=== PATIENT | female | born 1980 | race African-American/Black ===

== ENCOUNTER 2017-01-23 06:50 | Emergency (ER) | payer OTHER ==
[~2017-01-23] VITALS: Ht 167.6 cm; Wt 90.7 kg
[~2017-01-23 06:50] MED LIST: ABILIFY10 MG ORAL; ALBUTEROL SULF8.5 GM INH; AMOXICILLIN500 M1 PO; AMOXICILLIN500 MG ORAL; AZITHROMYCIN1 GM ORAL; CIPRO500 MG PO; CLARITIN-D 121 EAC1 ORAL; CYCLOBENZAPRINE10 MG ORAL; DIFLUCAN150 MG PO; FLONASE1 SPRAYS NASAL; GUAIFENESIN400 MG PO; HYDROXYZINE HCL25 M1 PO; IBUPROFEN600 MG ORAL; LAMICTAL25 MG ORAL; METRONIDAZOLE500 MG ORAL; NAPROXEN500 M2 ORAL; NORCO 5-325 TA1 EACH ORAL; OCUFLOX5 ML OP; PERMETHRIN60 GM TOPIC; PROAIR HFA8.5 GM INH; PSEUDOEPHEDRINE30 MG PO; TESSALON PERLE100 M2 ORAL; VICODIN ES 7.51 EACH ORAL; ZITHROMAX250 MG ORAL
[2017-01-23] MEDS ORDERED: ALBUTEROL SULF8.5 GM INH (07:11)
--- NOTE | 2017-01-23 07:15 | Emergency Room Report ---
History of Present Illness General Chief Complaint: Sore Throat Source: Patient Present Illness HPI Patient is a 36-year-old female who presented after increased sore throat cough and nasal congestion. The patient gradual onset of symptoms with past few days. Patient stated that she had had previously been taking inhalers. Patient had had taken [id number] medications without much her leave. Patient stated that she had increased sore throat. Patient had a nonproductive cough. Patient reports being a smoker. Allergies: Coded Allergies: No Known Allergies (Unverified , 04/27/13) Patient History Past Medical History: see triage record Last Menstrual Period: 01/06/17 Reviewed Nursing Documentation: PMH: Agreed, PSxH: Agreed Nursing Documentation-PMH Hx COPD: No - BRONCHITIS Review of Systems All Other Systems: negative except mentioned in HPI Physical Exam Vital Signs Date Time Temp Pulse Resp B/P Pulse Ox O2 Delivery O2 Flow Rate FiO2 01/23/17 06:53 98.2 99 18 99/64 95 Room Air General Appearance: well appearing, no apparent distress, alert, GCS 15, obese Head: normocephalic, atraumatic ENT: hearing grossly normal, normal voice Neck: full range of motion, supple Respiratory: normal inspection, no respiratory distress, speaking full sentences Cardiovascular #1: normal peripheral pulses, regular rate, rhythm, no edema Gastrointestinal: normal bowel sounds, non tender Musculoskeletal: normal inspection, no calf tenderness Neurologic: normal inspection, alert, oriented x3, normal gait Psychiatric: mood/affect normal Skin: no rash Medical Decision Making Diagnostic Impression: Primary Impression: Viral pharyngitis ER Course Patient presented for cough. Differential diagnosis included but was not limited to bronchitis, pneumonia, pulmonary embolism, pericarditis, asthma, foreign body. The patient appears to have had viral pharyngitis. Patient given prescription for albuterol. The patient is advised to follow up with primary care doctor in 1-2 days. Patient is advised to return if any worsening condition or if any changes in status that are concerning. Last Vital Signs Date Time Temp Pulse Resp B/P Pulse Ox O2 Delivery O2 Flow Rate FiO2 01/23/17 06:53 98.2 99 18 99/64 95 Room Air Status: improved Disposition: HOME, SELF-CARE Condition: Stable Scripts Albuterol Sulfate* (ALBUTEROL SULFATE MDI*) 8.5 Gm Hfa.aer.ad 2 PUFF INH Q4H Y for For Cough, #1 INH 0 Refills Prov: Joel Guido 01/23/17 Patient Instructions: Pharyngitis Joel Guido Jan 23, 2017 07:15
[2017-01-23 07:17] VITALS: BP 102/67
[2017-01-23 07:23] VITALS: BP 102/67
== END 2017-01-23 07:26 | disposition home or self-care (01) ==
LOC: EMR 07:10
DX: J02.9 Acute pharyngitis, unspecified (principal)
CPT/HCPCS: 99283

== ENCOUNTER 2018-10-02 20:11 | Emergency (ER) | payer OTHER ==
[~2018-10-02] VITALS: Ht 167.6 cm; Wt 90.7 kg
--- NOTE | 2018-10-02 20:52 | NUR ---
ED Nurse Note: pt came to ed c/o of lower left back pain radiating to the left thight, pt says it 05/29, per pt it began 09/27/18Sunday pt said "i was cleaning and then i a had a sharp back pain" pt denies taking medication today for pain
[2018-10-02 20:53] VITALS: BP 94/64
--- NOTE | 2018-10-02 20:57 | NUR ---
ED Nurse Note: boyfriend at bedside
[2018-10-02] MEDS ORDERED: Ketorolac 60mg Inj IM ONE (21:00)
[2018-10-02] MEDS ORDERED: Methocarbamol 750mg tab ORAL ONE (21:00)
--- NOTE | 2018-10-02 21:00 | Emergency Room Report ---
History of Present Illness General Chief Complaint: Back Pain-No Injury Source: Patient Present Illness HPI Patient presents with complaints of left lower back pain radiation to the left lateral leg and thigh area Patient reports that on while she was picking up and doing some cleaning she felt that a sharp pain It has persisted off and on pain is worse with trying to bend forward trying to change her shoes Patient also transfer [employer] Reports that she was just at [place] with her boyfriend's birthday is also recently in the had long drive out there and back feels that it was somewhat exacerbated denies any bowel or urinary incontinence denies any saddle paresthesia denies any upper back pain denies any fall or other trauma Allergies: Coded Allergies: No Known Allergies (Unverified , 04/27/13) Patient History Past Medical History: see triage record Pertinent Family History: none Last Menstrual Period: Sep 09, 2018 Now: No Reviewed Nursing Documentation: PMH: Agreed; PSxH: Agreed Nursing Documentation-PMH Hx COPD: No - BRONCHITIS Review of Systems All Other Systems: negative except mentioned in HPI Physical Exam Vital Signs Date Time Temp Pulse Resp B/P (MAP) Pulse Ox O2 Delivery O2 Flow Rate FiO2 10/02/18 20:37 98.4 91 18 94/64 98 Room Air Sp02 EP Interpretation: reviewed, normal General Appearance: well appearing, no apparent distress Head: normocephalic, atraumatic Eyes: bilateral eye PERRL, bilateral eye EOMI ENT: hearing grossly normal, normal pharynx, TMs + canals normal, uvula midline Neck: full range of motion, supple, no meningismus, no bony tend Respiratory: lungs clear, normal breath sounds, no rhonchi, no respiratory distress, no retraction, no accessory muscle use Cardiovascular #1: normal peripheral pulses, regular rate, rhythm, no edema, no gallop, no JVD, no murmur Gastrointestinal: normal bowel sounds, non tender, soft, no mass, no organomegaly, non-distended, no guarding, no hernia, no pulsatile mass, no rebound Genitourinary: no CVA tenderness Musculoskeletal: other - Discomfort palpated left posterior superior iliac crest, midline nontender, sensory intact Neurologic: oriented x3, responsive, grain inspector III-XII nml as tested, motor strength/ tone normal, sensory intact Psychiatric: mood/affect normal Skin: normal color, no rash, warm/dry, palpation normal Lymphatic: normal inspection, no adenopathy Medical Decision Making Diagnostic Impression: Primary Impression: Sciatic leg pain Additional Impression: Sciatica ER Course Given the patient's history and presentation multiple differentials entertained including but not limited to neurological neurosurgical infectious pathology Patient's description and exam however are consistent with sciatic component patient will have initial conservative attempt and outpatient trial with return with any change in symptoms,, Last Vital Signs Date Time Temp Pulse Resp B/P (MAP) Pulse Ox O2 Delivery O2 Flow Rate FiO2 10/02/18 20:53 98.4 91 18 94/64 98 Room Air Status: improved Disposition: HOME, SELF-CARE Condition: Improved Additional Instructions: Patient is provided with the discharge instructions notified to follow up with primary doctor in the next 2-3 days otherwise return to the er with any worsening symptoms. Please note that this report is being documented using bluepulse technology. This can lead to erroneous entry secondary to incorrect interpretation by the dictating instrument. Sivakumar Catherine DO Oct 02, 2018 21:00
[2018-10-02] MEDS ORDERED: IBUPROFEN600 MG ORAL (21:01)
[2018-10-02] MEDS ORDERED: ROBAXIN-750750 MG PO (21:01)
[2018-10-02 21:12] VITALS: BP 94/64
--- NOTE | 2018-10-02 21:12 | NUR ---
ED Nurse Note: pt is d/c per ermd order, pt is aox4, on room air, with stable vital signs. pt was given dc and prescription instructions, pt was able to verbalize understanding, pt id band. pt is able to ambulate with steady gait. pt took all belongings.
== END 2018-10-02 22:50 | disposition home or self-care (01) ==
LOC: EMR 22:30
DX: M54.42 Lumbago with sciatica, left side (principal)
CPT/HCPCS: 96372; 99283

== ENCOUNTER 2019-07-15 20:54 | Emergency (ER) | payer OTHER ==
[~2019-07-15] VITALS: Ht 167.6 cm; Wt 86.2 kg
[~2019-07-15 20:54] MED LIST changes: +ROBAXIN-750750 MG PO
[2019-07-15 21:00] VITALS: BP 131/78
--- NOTE | 2019-07-15 21:00 | NUR ---
ED Nurse Note: Pt aaox4, vss, no acute distress. Pt is well groomed, cooperative, and ambulating with no issues. No skin issues noted. Pt walked in c/o n/v/d since AM. Pt stated "I might have had bad food 07/14".
[2019-07-15] MEDS ORDERED: LITHIUM CARBON150 MG ORAL (21:02)
--- NOTE | 2019-07-15 21:17 | NUR ---
ED Nurse Note: Pt ambulated to the bathroom.
--- NOTE | 2019-07-15 21:22 | NUR ---
ED Nurse Note: Pt is back from [facility] bathroom with no issues. Pt stated she took over 2L of fluids prior to ED visit and she vomited the fluid. Pt states vomiting could be from food that she ate.
--- NOTE | 2019-07-15 21:30 | NUR ---
ED Nurse Note: with Pt.
[2019-07-15 21:49] LABS: APPEARANCE,URINE CLEAR; BILIRUBIN, URINE NEGATIVE (NEGATIVE); COLOR,URINE PALE YELLOW; GLUCOSE, URINE (UA) NEGATIVE (NEGATIVE); KETONES,URINE NEGATIVE (NEGATIVE); LEUKOCYTE ESTERASE ,URINE NEGATIVE (NEGATIVE); NITRITE,URINE NEGATIVE (NEGATIVE); PH,URINE 5 (4.5-8.0); PROTEIN,URINE 1+ (NEGATIVE); UROBILINOGEN,URINE NORMAL MG/DL (0.0-1.0)
[2019-07-15 21:58] LABS: HEMATOCRIT 45.8 % (37.0-47.0); HEMOGLOBIN 15.2 G/DL (12.0-16.0); MEAN CORPUSCULAR VOLUME 90 FL (80-99); PLATELET COUNT 327 K/UL (150-450); RED BLOOD COUNT 5.09 M/UL (4.20-5.40); RED CELL DISTRIBUTION WIDTH 11.2 % (11.6-14.8); WHITE BLOOD COUNT 10.3 K/UL (4.8-10.8)
[2019-07-15] MEDS ORDERED: Acetaminophen 500mg (ES) tab ORAL ONE (22:00)
[2019-07-15 22:12] LABS: ANION GAP 10 mmol/L (5-15); BLOOD UREA NITROGEN 13 mg/dL (7-18); CALCIUM 8.6 MG/DL (8.5-10.1); CARBON DIOXIDE 28 MMOL/L (21-32); CHLORIDE 104 MMOL/L (98-107); POTASSIUM 4.1 MMOL/L (3.5-5.1); SODIUM 142 MMOL/L (136-145)
[2019-07-15 22:15] LABS: ALANINE AMINOTRANSFERASE 32 U/L (12-78); ALKALINE PHOSPHATASE 79 U/L (46-116); ASPARTATE AMINO TRANSFERASE 21 U/L (15-37); BILIRUBIN,TOTAL 0.5 MG/DL (0.2-1.0)
--- NOTE | 2019-07-15 22:42 | Emergency Room Report ---
History of Present Illness General Chief Complaint: Nausea, Vomiting, and Diarrhea Source: Patient Present Illness HPI 38-year-old female presents ED for evaluation. Patient complaining of abdominal pain with nausea and vomiting and diarrhea. Started this morning. States it could be food related. Pain is cramping, 7 out of 10, nonradiating. Notes multiple episodes of vomiting and diarrhea. Denies fevers or chills. Denies recent travel recent antibiotic use. No other aggravating relieving factors. Denies any other associated symptoms Allergies: Coded Allergies: No Known Allergies (Unverified , 04/27/13) Patient History Past Medical History: psych hx Past Surgical History: none Pertinent Family History: none Social History: Denies: smoking, alcohol use, drug use Last Menstrual Period: 06/2019 Now: No Immunizations: UTD Reviewed Nursing Documentation: PMH: Agreed; PSxH: Agreed Nursing Documentation-PMH Hx COPD: No - BRONCHITIS History Of Psychiatric Problem: Yes - bipolar Review of Systems All Other Systems: negative except mentioned in HPI Physical Exam Vital Signs Date Time Temp Pulse Resp B/P (MAP) Pulse Ox O2 Delivery O2 Flow Rate FiO2 07/15/19 20:56 98.1 86 18 126/74 (91) 96 Room Air Sp02 EP Interpretation: reviewed, normal General Appearance: no apparent distress, alert, GCS 15, non-toxic Head: normocephalic, atraumatic Eyes: bilateral eye normal inspection, bilateral eye PERRL ENT: hearing grossly normal, normal pharynx, no angioedema, normal voice Neck: full range of motion, supple/symm/no masses Respiratory: chest non-tender, lungs clear, normal breath sounds, speaking full sentences Cardiovascular #1: regular rate, rhythm, no edema Cardiovascular #2: 2+ carotid (R), 2+ carotid (L), 2+ radial (R), 2+ radial (L) , 2+ dorsalis pedis (R), 2+ dorsalis pedis (L) Gastrointestinal: normal bowel sounds, non tender, soft, non-distended, no guarding, no rebound Rectal: deferred Genitourinary: normal inspection, no CVA tenderness Musculoskeletal: back normal, normal range of motion, gait/station normal, non- tender Neurologic: alert, motor strength/tone normal, oriented x3, sensory intact, responsive, speech normal Psychiatric: judgement/insight normal, memory normal, mood/affect normal, no suicidal/homicidal ideation Reflexes: 3+ bicep (R), 3+ bicep (L), 3+ tricep (R), 3+ tricep (L), 3+ knee (R) , 3+ knee (L) Lymphatic: no adenopathy Medical Decision Making Diagnostic Impression: Primary Impression: Gastroenteritis ER Course Hospital Course 38-year-old F presents to ED with cramping abdominal pain with vomiting, diarrhea differential diagnosis: gastritis, SBO, cholecystits, gastroenteritis Clinical course Patient placed on stretcher. On front desk monitor. After initial history and physical I ordered labs, IV fluids, Zofran and pepcid Labs - no leukocytosis, electrolytes ok, LFTs normal, UA unremarkable. flu swab negative Upon reassessment, patient states pain has improved. findings consistent with gastroenteritis. discussed findings with patient will discharge to home. States she has a PMD I feel this is a highly complex case requiring extensive working including EKG/ Rhythm strip, Xray/CT/US, Blood/urine lab work, repeat exams while in ED, and administration of strong opiates/narcotics for pain control, admission to hospital or close patient follow up. Diagnosis - gastroenteritis Stable and discharged to home with prescriptions for Zantac, zofran, bentyl. Followup with PMD. Return to ED if symptoms recur or worsen Labs Test 07/15/19 21:21 07/15/19 21:43 Urine Color Pale yellow Urine Appearance Clear Urine pH 5 (4.5-8.0) Urine Specific [place] 1.015 (1.005-1.035) Urine Protein 1+ (NEGATIVE) Urine Glucose (UA) Negative (NEGATIVE) Urine Ketones Negative (NEGATIVE) Urine Blood 1+ (NEGATIVE) Urine Nitrite Negative (NEGATIVE) Urine Bilirubin Negative (NEGATIVE) Urine Urobilinogen Normal MG/DL (0.0-1.0) Urine Leukocyte Esterase Negative (NEGATIVE) Urine RBC 2-4 /HPF (0 - 2) Urine WBC 0-2 /HPF (0 - 2) Urine Squamous Epithelial Cells Few /LPF (NONE/OCC) Urine Bacteria Few /HPF (NONE) Urine HCG, Qualitative Negative (NEGATIVE) White Blood Count 10.3 K/UL (4.8-10.8) Red Blood Count 5.09 M/UL (4.20-5.40) Hemoglobin 15.2 G/DL (12.0-16.0) Hematocrit 45.8 % (37.0-47.0) Mean Corpuscular Volume 90 FL (80-99) Mean Corpuscular Hemoglobin 29.9 PG (27.0-31.0) Mean Corpuscular Hemoglobin Concent 33.2 G/DL (32.0-36.0) Red Cell Distribution Width 11.2 % (11.6-14.8) Platelet Count 327 K/UL (150-450) Mean Platelet Volume 6.3 FL (6.5-10.1) Neutrophils (%) (Auto) % (45.0-75.0) Lymphocytes (%) (Auto) % (20.0-45.0) Monocytes (%) (Auto) % (1.0-10.0) Eosinophils (%) (Auto) % (0.0-3.0) Basophils (%) (Auto) % (0.0-2.0) Differential Total Cells Counted 100 Neutrophils % (Manual) 92 % (45-75) Lymphocytes % (Manual) 4 % (20-45) Monocytes % (Manual) 3 % (1-10) Eosinophils % (Manual) 1 % (0-3) Basophils % (Manual) 0 % (0-2) Band Neutrophils 0 % (0-8) Platelet Estimate Adequate Platelet Morphology Normal Red Blood Cell Morphology Normal Sodium Level 142 MMOL/L (136-145) Potassium Level 4.1 MMOL/L (3.5-5.1) Chloride Level 104 MMOL/L (98-107) Carbon Dioxide Level 28 MMOL/L (21-32) Anion Gap 10 mmol/L (5-15) Blood Urea Nitrogen 13 mg/dL (7-18) Creatinine 1.0 MG/DL (0.55-1.30) Estimat Glomerular Filtration Rate > 60 mL/min (>60) Glucose Level 119 MG/DL (74-106) Calcium Level 8.6 MG/DL (8.5-10.1) Total Bilirubin 0.5 MG/DL (0.2-1.0) Aspartate Amino Transf (AST/SGOT) 21 U/L (15-37) Alanine Aminotransferase (ALT/SGPT) 32 U/L (12-78) Alkaline Phosphatase 79 U/L (46-116) Total Protein 7.8 G/DL (6.4-8.2) Albumin 4.0 G/DL (3.4-5.0) Globulin 3.8 g/dL Lipase 86 U/L (73-393) Last Vital Signs Date Time Temp Pulse Resp B/P (MAP) Pulse Ox O2 Delivery O2 Flow Rate FiO2 07/15/19 21:00 98.7 18 131/78 100 Room Air 07/15/19 20:56 86 Status: improved Disposition: HOME, SELF-CARE Condition: Stable Scripts Dicyclomine Hcl* (DICYCLOMINE HCL*) 10 Mg Capsule 10 MG ORAL QID, #20 CAP Prov: Arpit Corona MD 07/15/19 Ranitidine Hcl* (ZANTAC*) 150 Mg Tablet 150 MG ORAL TWICE A DAY, #30 TAB Prov: Arpit Corona MD 07/15/19 Ondansetron Odt* (ZOFRAN ODT*) 4 Mg Tab.rapdis 4 MG BC EVERY 6 HOURS PRN for Nausea & Vomiting, #20 TAB 0 Refills Prov: Arpit Corona MD 07/15/19 Referrals: NON PHYSICIAN (PCP) Arpit Corona MD Jul 15, 2019 22:42
[2019-07-15] MEDS ORDERED: ONDANSETRON ODT4 MG BC (23:18)
[2019-07-15] MEDS ORDERED: DICYCLOMINE HCL10 MG ORAL (23:18)
[2019-07-15] MEDS ORDERED: RANITIDINE HCL150 MG ORAL (23:18)
[2019-07-15 23:30] VITALS: BP 113/52
--- NOTE | 2019-07-15 23:30 | NUR ---
ER DISCHARGE NOTE: Patient is cleared to be discharged per ERMD, pt is aox4, on room air, with stable vital signs. pt was given dc and prescription instructions, pt was able to verbalize understanding, pt id band and iv site removed without complications. pt is able to ambulate with steady gait. pt took all belongings. Pt ambulated out of the ED with no issues.
== END 2019-07-15 23:30 | disposition home or self-care (01) ==
LOC: EMR 21:09
DX: K52.9 Noninfective gastroenteritis and colitis, unspecified (principal); F31.9 Bipolar disorder, unspecified
CPT/HCPCS: 36415; 80053; 81003; 81025; 83690; 85007; 85025; 86710; 96361; 96374; 96375; J2405; J7030; S0028; Z7502; 99284

== ENCOUNTER 2020-10-13 01:46 | Emergency (ER) | payer OTHER ==
[~2020-10-13] VITALS: Ht 167.6 cm; Wt 90.7 kg
[~2020-10-13 01:46] MED LIST changes: +DICYCLOMINE HCL10 MG ORAL; +LITHIUM CARBON150 MG ORAL; +ONDANSETRON ODT4 MG BC; +RANITIDINE HCL150 MG ORAL
--- NOTE | 2020-10-13 02:00 | Emergency Room Report ---
History of Present Illness General Chief Complaint: Skin Rash/Abscess Source: Patient Present Illness HPI Disclaimer: Please note that this report is being documented using DRAGON technology. This can lead to erroneous entry secondary to incorrect interpretation by the dictating instrument. HPI: 40-year-old female presents for wound evaluation. 2 weeks ago the patient traveled to [place] to have liposuction performed. She stated for 1 week after which she was receiving massages around the surgical site and then for the past week has not been receiving those massages. She believes the skin is getting more lumpy and hard. Denies bleeding, purulent drainage, redness, warmth. Denies skin breakdown or ulceration. Denies fever or chills. Denies nausea or vomiting. Reports some pain around the surgical sites but otherwise no belly pain. Moving her bowels. No other complaints. Wearing the abdominal binder as instructed by surgeon. PMH: Reviewed PSH: Liposuction Allergies: Reviewed Social Hx: Reviewed Allergies: Coded Allergies: No Known Allergies (Unverified , 04/27/13) COVID-19 Screening Contact w/high risk pt: No Experienced COVID-19 symptoms?: No COVID-19 Testing performed [employer]: Yes - august 2020 COVID-19 Screening: Negative COVID-19 COVID-19 Testing Source: [facility] Patient History Last Menstrual Period: 10/09/20 Nursing Documentation-PMH Past Medical History: No History, Except For Hx COPD: No - BRONCHITIS Review of Systems All Other Systems: negative except mentioned in HPI Physical Exam Vital Signs Date Time Temp Pulse Resp B/P (MAP) Pulse Ox O2 Delivery O2 Flow Rate FiO2 10/13/20 01:52 98.2 86 18 102/64 (77) 98 Room Air General: Awake and alert, no acute distress HEENT: NC/AT. EOMI. Resp: Normal work of breathing Abdomen: Incision sites in the abdomen and lower back are clean dry and intact. No significant edema, erythema, warmth, purulence. No fluctuant masses. There is some induration over the abdomen in the lower quadrants along the patient surgical sites. No significant tenderness. No peritoneal signs. Skin: Intact. No abrasions, laceration or rash over the exposed skin MSK: Normal tone and bulk. Moving all extremities. No obvious deformity. Neuro: Awake and alert. Mentating appropriately Medical Decision Making Diagnostic Impression: Primary Impression: Encounter for evaluation of wound ER Course Is a 40-year-old female presenting for evaluation of surgical wounds after li posuction procedure in [place] 2 weeks ago. She missed 1 week of the radiofrequency massage and is complaining of hardened appearance of the skin. I see no signs of infection or fluid collection. Instructed her to call her surgeon in the morning to discuss further treatment options. Do not believe she requires emergent labs or imaging at this time. She is otherwise well-appearing and no other complaints. Stable for outpatient follow-up Last Vital Signs Date Time Temp Pulse Resp B/P (MAP) Pulse Ox O2 Delivery O2 Flow Rate FiO2 10/13/20 01:52 98.2 86 18 102/64 (77) 98 Room Air Disposition: HOME, SELF-CARE Condition: Stable Pepe Mckenzie MD Oct 13, 2020 02:00
[2020-10-13 02:07] VITALS: BP 102/64
--- NOTE | 2020-10-13 02:09 | NUR ---
ED Nurse Note: Pt had liposuction 09/21/2020, c/o generalized abdominal pain that radiates to back. Pt is AAO x4 and ambulatory.
--- NOTE | 2020-10-13 02:11 | NUR ---
ER DISCHARGE NOTE: Patient is cleared to be discharged per ER MD, pt is aaox4, on room air, with stable vital signs. pt was given d/c and prescription instructions, pt was able to verbalize understanding, pt id band and iv site removed without complications. pt is able to ambulate with steady gait. pt took all belongings.
[2020-10-13 02:14] VITALS: BP 102/64
== END 2020-10-13 03:15 | disposition home or self-care (01) ==
LOC: EMR 02:00
DX: T81.89XA Other complications of procedures, not elsewhere classified, initial encounter (principal); X58.XXXA Exposure to other specified factors, initial encounter; Y92.9 Unspecified place or not applicable
CPT/HCPCS: 99281